=== PATIENT | male | born 1980 | race Two or more races ===

== ENCOUNTER 2024-04-24 12:24 | Emergency (ER) | payer OTHER ==
[~2024-04-24] VITALS: Ht 177.8 cm; Wt 114.9 kg
[2024-04-24 12:46] VITALS: BP 154/97; TEMP 99.1; O2SAT 96
[2024-04-24] MEDS: ACYCLOVIR IV 1 GM in IV D5W 250 ML IV ONE (13:39)
[2024-04-24] MEDS ORDERED: ACYC-108 PO (14:02)
[2024-04-24] MEDS ORDERED: ACETAMINOPHEN ES 500 MG TABLET ONE (14:35)
[2024-04-24] MEDS: ACETAMINOPHEN 325 MG TABLET PO ONE (14:39)
== END 2024-04-24 15:01 | disposition left against medical advice (07) ==
LOC: ER 12:30
DX: R21 Rash and other nonspecific skin eruption (principal); R51.9 Headache, unspecified; I10 Essential (primary) hypertension; Z87.19 Personal history of other diseases of the digestive system; Z91.018 Allergy to other foods; Z60.2 Problems related to living alone
CPT/HCPCS: 99284; 96365; J0133; J7060